=== PATIENT | female | born 1955 | race Caucasian/White ===

== ENCOUNTER 2017-04-27 21:39 | Inpatient (IN) | payer OTHER ==
[~2017-04-27] VITALS: Ht 160 cm; Wt 93.7 kg
[2017-04-27 21:43] VITALS: BP 184/112; PULSE 146; RESP 12; O2SAT 98
--- NOTE | 2017-04-27 21:52 | ED.REPORT ---
HPI-Chest Pain 40 and Over Date of Service Apr 27, 2017 ED Provider: Jamil Anne MD The pt is a 61 y/o female w/ a hx of idiopathic PVCs presenting to the ED due to a possible episode of A-fib beginning 1 hour ago while at rest. The pt has never had this happen before and has not had alcohol today. Denies nausea, vomiting, diarrhea, cough, cold, flu, or dysuria. The pt reports having idiopathic PVCs for the last 30 years. Her mother had an episode of A-fib at age 60. Nursing Notes Stated Complaint: POSS AFIB Chief Complaint: Possible A-fib Nursing Notes Reviewed: Yes Allergies: Coded Allergies: Sulfa (Sulfonamide Antibiotics) (Verified Allergy, Intermediate, 04/27/17) Scheduled Acebutolol (Acebutolol) 200 Mg Capsule 200 MG PO DAILY Aspirin Chew (Aspirin Chew) 81 Mg Chew 81 MG PO DAILY Fluoxetine (Fluoxetine) 20 Mg Capsule 20 MG PO DAILY Lansoprazole DR (Prevacid) 30 Mg Capsule 30 MG PO DAILY Sucralfate (Carafate) 1 Gm Tablet 1 GM PO QID Miscellaneous Medications Estradiol (Estrogel) 50 Gm Gel..supervisor cytology 50 GM TD Fluticasone Propionate (Flonase Allergy Relief) 50 Mcg/Actuation Effie.susp 9.9 ML NS Magnesium Oxide (Magnesium) 250 Mg Tablet 250 MG PO Vit D3/Folic Acid/B2/B6/B12 (Folgard Tablet) 1 Each Tablet 1 EACH PO General Time Seen by MD: 21:51 Chief Complaint Other (Possible A-fib ) Hx Obtained From: Patient Arrived By: Walk-in Sudden in Onset?: Yes Onset Occurred: Just prior to arrival Symptom Duration: Since onset Recent Healthcare: No recent doctor visit, No recent hospitalization Similar Sx Previous: No Past Medical History Past Medical History Idiopathic PVCs for last 30 years; Past Surgical History None reported Smoking History Never Smoker Social History Other Social History: Good social support Ambulatory Status Independent Review of Systems Pt reports a rapid heart rate; Basic Review of Systems Eyes: Vision NL ENT: Hearing NL, No pain : No dysuria Hematologic: No bleeding Endocrine: No cold intolerance, No heat intolerance Allergy / Immune: No allergy Respiratory: Denies: Non-productive cough GI: Denies: Diarrhea, Nausea, Vomiting Complete sys rev & neg: except as marked. Female: Denies: Dysuria Physical Exam Initial Vital Signs Vital Signs (First) Date Time Temp Pulse Resp B/P Pulse Ox O2 Delivery O2 Flow Rate FiO2 04/27/17 21:43 36.9 146 12 184/112 98 Room Air Initial VS: Reviewed Head / Eyes: Atraumatic, Normocephalic, PERRL ENT: Mucous membranes moist, Conjunctiva normal, No scleral icterus Extremities: Vascular intact, Neuro intact, No swelling, No tenderness Skin: Warm, Dry, No cyanosis Neurologic: Alert, Oriented, Nonfocal Psychiatric: Mood/affect normal, Behavior normal, Normal thought content General/Constitutional: Awake, Alert, No acute distress Respiratory / Chest: Atraumatic, Breath sounds NL, Breath sounds = bilat Cardiovascular: Heart sounds NL Heart Rate / Rhythm: Positive: Tachycardia Irregular regular rhythm; No edema; Abdomen: Atraumatic, Soft, Non-tender Neck: Atraumatic, Supple, Full range of motion, No JVD Interpretation & Diagnostics Lab Results Interpretation Result Diagram: 04/27/17 2215 04/27/17 2215 Test 04/27/17 21:55 04/27/17 22:15 Hold Urine Received (Received) White Blood Count 11.8th/mm3 (3.8-10.1) Red Blood Count 4.95mil/mm3 (3.90-5.20) Hemoglobin 14.4g/dL (12.0-15.6) Hematocrit 42.7% (35.0-46.0) Mean Corpuscular Volume 86.3fL (81-100) Mean Corpuscular Hemoglobin 29.1pg (27.0-35.0) Mean Corpuscular Hemoglobin Concent 33.7% (32.0-37.0) Red Cell Distribution Width 13.3% (12.3-15.4) Platelet Count 288bil/L (150-400) Neutrophils (%) (Auto) 65.7% (40-74) Lymphocytes (%) (Auto) 24.3% (14-46) Monocytes (%) (Auto) 5.8% (4-12) Eosinophils (%) (Auto) 3.3% (0-5) Basophils (%) (Auto) 0.6% (0-3) Sodium Level 140mEq/L (134-144) Potassium Level 3.5mEq/L (3.5-5.2) Chloride Level 101mEq/L (97-108) Carbon Dioxide Level 26mmol/L (18-29) Blood Urea Nitrogen 18mg/dL (8-27) Creatinine 0.76mg/dL (0.57-1.00) Estimat Glomerular Filtration Rate 111mL/min (>59) Glucose Level 108mg/dL (60-99) Calcium Level 9.5mg/dL (8.5-10.1) Magnesium Level 1.9mg/dL (1.6-2.6) Total Bilirubin 0.2mg/dL (0.0-1.2) Aspartate Amino Transf (AST/SGOT) 23U/L (0-50) Alanine Aminotransferase (ALT/SGPT) 17U/L (0-32) Alkaline Phosphatase 76U/L (25-165) Troponin T 0.010ug/L (0.0-0.011) Total Protein 7.5g/dL (6.4-8.4) Albumin 4.2g/dL (3.4-5.0) Thyroid Stimulating Hormone (TSH) 3.750uIU/mL (0.450-4.500) Pulse Oximetry Interpretation Pulse Oximetry Interpretation: 98% ECG Interpretation ECG Interpretation: Rate 150 A-fib w/ RVR Incomplete RBBB Time: 21:57 Interpreted by: ED physician X-Ray Chest Interpretation Chest Xray Interpretation: Impression: No acute findings View: Portable, 1 view Interpretation / Wet Read by: Wet read ED physician Re-Eval/Medical Decision Med Decision/Clinical Course Healthy 61-year-old female presents with new onset A. fib and rapid ventricular response. Laboratory work reassuring. Chest x-ray normal. Boluses of IV Cardizem brought her heart rate down to about 110. She maintains on a Cardizem drip. We will admit to the progressive care unit for ongoing treatment of her RVR. I did not feel that cardioversion was indicated. She does have a history of recurrent palpitations related to PVCs. Any one of these could be cryptic A. fib. I recommended echocardiogram prior to any attempts at cardioversion. Source of Hx: Family Consultation : Referral / Consult Name: Damian Fischer MD Consulted With: Hospitalist Call Returned at: 23:40 Reel Hooker: Will see patient, Agrees with eval, Agrees with plan, Accepts admit Counseled Regarding: Diagnosis, Lab results, Need for admission Discharge & Departure Primary Impression: Atrial fibrillation with rapid ventricular response Disposition: ADMITTED TO HOSPITAL Discharge Condition All VS Reviewed: Yes Condition: Stable Referrals: Natalya Antoine PA-C (PCP) Crit Care Except Billable Proc Time Spent: 30-74 minutes Services Performed: Patient management by me, Time spent at bedside, Reviewing test results, Reviewing imaging, Discussing patient care, Documentation in record, Time with fam/surrogate, Other (managing the atrial fibrillation with aliquots of IV Cardizem and a Cardizem drip.) Scribe Attestation Portions of this note were transcribed by Joel Espinosa. I, Dr. Anne personally performed the history, physical exam and medical decision-making; I reviewed and confirmed the accuracy of the information in the transcribed note. copies to: Natalya Antoine PA-C, Todd P DO Apr 27, 2017 21:52 Joel Espinosa Apr 27, 2017 22:27
[2017-04-27] MEDS ORDERED: Diltiazem 5 mg/mL 5 mL Inj IVPUSH ONE (22:10)
[2017-04-27] MEDS ORDERED: Diltiazem HCl 125 MG in 0.9% Sodium Chloride 100 ML, Pharmacy To Mix 1 EA IV SCH (22:10)
[2017-04-27 22:17] LABS: BASOPHILS % (AUTO) 0.6 % (0-3); EOSINOPHILS % (AUTO) 3.3 % (0-5); MONOCYTES % (AUTO) 5.8 % (4-12); Mean Corpuscular Hemoglobin 29.1 pg (27.0-35.0); Mean Corpuscular Volume 86.3 fL (81-100); NEUTROPHILS % (AUTO) 65.7 % (40-74); Platelet Count 288 bil/L (150-400)
[2017-04-27 22:30] VITALS: BP 155/89; PULSE 136; RESP 12; O2SAT 96
[2017-04-27 22:46] LABS: TROPONIN T 0.01 ug/L (0.0-0.011)
[2017-04-27 22:50] VITALS: BP 135/82; PULSE 151; RESP 16; O2SAT 96
[2017-04-27 23:03] LABS: Magnesium 1.9 mg/dL (1.6-2.6)
[2017-04-27 23:20] VITALS: BP 136/67; PULSE 145; RESP 19; O2SAT 96
[2017-04-27] MEDS ORDERED: Ondansetron 2 mg/mL 2 mL Inj IVPUSH PRN (23:35)
[2017-04-27] MEDS ORDERED: Alum-Mag Hydrox-Simeth 30 mL Suspension PO PRN (23:35)
[2017-04-27] MEDS ORDERED: Polyethylene Glycol (PEG) 17 Gm Powder PO PRN (23:35)
--- NOTE | 2017-04-27 23:41 | PCM.HPMED ---
Subjective Date of Service Apr 27, 2017 Primary Provider: Admitting Physician: Primary Care Physician: Natalya Antoine PA-C Attending Physician: Admit Status: From the Emergency Department, Full Admit, [facility] Telemetry Chief Complaint: Palpitations History of Present Illness: Kristan Payne is a 61 y/ female with Hypertension, Hyperlipidemia, GERD, allergic rhinitis presenting to [facility] emergency department due to palpitations Patient reported she was sitting at home when she had acute onset of palpitations. Associated symptoms includes feeling anxious and she denies any dyspnea or chest pain. She denies any fever, chills or coughing. Denies nausea, vomiting, diarrhea, cough, cold, flu, or dysuria. 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 Her mother had an episode of A-fib at age 60 and was on Coumadin Case discussed with Dr Anne, Cardizem drip initiated after a bolus was not effective. EKG confirmed Atrial fibrillation Review of Systems: Pertinent positives as noted in HPI. All other systems were reviewed and are negative Allergies Coded Allergies: Sulfa (Sulfonamide Antibiotics) (Verified Allergy, Intermediate, 04/27/17) Home Medications From [facility], not yet confirmed Kristan Payne [id number] 1955 03/29/2017 10:40 AM 08/11 acebutolol 200 mg capsule take 1 capsule by oral route every day aspirin 81 mg tablet,delayed release take 1 tablet by oral route every day Carafate 1 gram tablet take 1 tablet by oral route 2 times every day on an empty stomach 1 hour before meals and at bedtime Compound - Topical COMBO. PKG biest/prog/test/dhea 1/50/1/10mg/ml Flonase Allergy Relief 50 mcg/actuation nasal spray,suspension 2 sprays each side of nose once daily fluoxetine 20 mg capsule take 1 capsule by oral route every day in the morning magnesium take 1 tab by oral route every day Prevacid 15 mg capsule,delayed release take 1 tab daily Vitamin D3 5,000 unit tablet take 1 by Oral route once PMH History of - hormone replacement (HRT) Obesity Smoking Hypertension Hyperlipidemia GERD Allergic rhinitis Depression Vitamin D deficiency . Surgical History Septum repair and rhinoplasty JANES D&C Family History Father had GI bleeding and from pneumonia age 67 Mother had Thrombocytopenia, thyroid cancer and Atrial fibrillation Sister had Breast Cancer Social History Occupation: retired nurse Hx Alcohol Use: No Hx Substance Use: No Hx Tobacco Use: Yes Smoking Status: Former Smoker Living Arrangement: with Family Exam Vital Signs Vital Sign - Last Date Time Temp Pulse Resp B/P Pulse Ox O2 Delivery O2 Flow Rate FiO2 04/27/17 21:43 36.9 146 12 184/112 98 Room Air Exam General: Alert, Oriented X3, Cooperative, No acute Distress Eyes: PERRLA, Scleral Anicteric Mouth: Mouth Normal, Mucous Membranes Moist/[place] Neck: Supple, no Thyromegaly, trachea central. Chest & Lungs: Clear to auscultation & percussion, No adventitious breath sounds, no crackles, no wheeze Cardiovascular: Normal S1, Normal S2, No Murmurs/Rubs/Gallops, Irregularly irregular (No JVD, no peripheral edema) Pulses: Radial (present and equal), Dorsalis Pedi (present and equal) Abdomen: Soft, Non-tender, Non-distended, Normoactive bowel tones. Musculoskeletal: Unremarkable. Normal range of motion, no swollen or erythematous joints Extremities: No edema, no cyanosis, no clubbing. Skin: No rashes. Warm and dry, no erythematous areas Neurological: Grossly neurologically intact, Normal Speech, Sensation Intact Lymphatic: Lymph nodes Cervical and Axillary not palpable. Lab and Diagnostics Labs Laboratory Tests Test 04/27/17 21:55 04/27/17 22:15 Hold Urine Received (Received) White Blood Count 11.8th/mm3 (3.8-10.1) Red Blood Count 4.95mil/mm3 (3.90-5.20) Hemoglobin 14.4g/dL (12.0-15.6) Hematocrit 42.7% (35.0-46.0) Mean Corpuscular Volume 86.3fL (81-100) Mean Corpuscular Hemoglobin 29.1pg (27.0-35.0) Mean Corpuscular Hemoglobin Concent 33.7% (32.0-37.0) Red Cell Distribution Width 13.3% (12.3-15.4) Platelet Count 288bil/L (150-400) Neutrophils (%) (Auto) 65.7% (40-74) Lymphocytes (%) (Auto) 24.3% (14-46) Monocytes (%) (Auto) 5.8% (4-12) Eosinophils (%) (Auto) 3.3% (0-5) Basophils (%) (Auto) 0.6% (0-3) Sodium Level 140mEq/L (134-144) Potassium Level 3.5mEq/L (3.5-5.2) Chloride Level 101mEq/L (97-108) Carbon Dioxide Level 26mmol/L (18-29) Blood Urea Nitrogen 18mg/dL (8-27) Creatinine 0.76mg/dL (0.57-1.00) Estimat Glomerular Filtration Rate 111mL/min (>59) Glucose Level 108mg/dL (60-99) Calcium Level 9.5mg/dL (8.5-10.1) Magnesium Level 1.9mg/dL (1.6-2.6) Total Bilirubin 0.2mg/dL (0.0-1.2) Aspartate Amino Transf (AST/SGOT) 23U/L (0-50) Alanine Aminotransferase (ALT/SGPT) 17U/L (0-32) Alkaline Phosphatase 76U/L (25-165) Troponin T 0.010ug/L (0.0-0.011) Total Protein 7.5g/dL (6.4-8.4) Albumin 4.2g/dL (3.4-5.0) Thyroid Stimulating Hormone (TSH) 3.750uIU/mL (0.450-4.500) Result Diagram: 04/27/17221404/27/172214 Assessment & Plan Kristan Payne is a 61 y/ female with Hypertension, Hyperlipidemia, GERD, allergic rhinitis presenting to [facility] emergency department due to palpitations 1. New onset Atrial Fibrillation with rapid ventricular response. Present on admission Likely etiology is longstanding Hypertension. TSH normal ruling out thyrotoxicosis as a cause. Ischemic heart disease will need to be ruled out. No evidence of any Pulmonary disease. CHADS2 score is 1 - monitor on telemetry - trending troponin overnight - continue rate control with Cardizem drip, titrate to Cardizem PO - complete echo requested - continue Aspirin - anticoagulation with Heparin drip, discussed transitioning to Coumadin with the patient 2 Hypertension, chronic Presumed stable with patient on one antihypertensive medication - holding Acebutolol for now to avoid bradycardia and this is an old medication with no clear benefit 3 Depression - continue Fluoxetine 4 GERD - continue Carafate and Prevacid (or equivalent) - Acetaminophen as needed for mild pain/fever/headache - Bowel regimen as needed - Antiemetic as needed Patient admitted under inpatient status with expected length of stay > 2 midnights for severity of present symptoms, complexities of treatment plan and risk for adverse event . Resuscitation Status: CPR: Attempt Resuscitation Damian Fischer MD Apr 27, 2017 23:40
[2017-04-28] VITALS (12 sets, daily range): BP systolic 99–155; BP diastolic 52–84; PULSE 58–159; RESP 16–20; O2SAT 95–98
[2017-04-28] MEDS ORDERED: Diltiazem 5 mg/mL 5 mL Inj IVPUSH ONE (00:15)
--- NOTE | 2017-04-28 00:47 | NUR ---
admit note: pt. admitted for irregular heartbeat since 2100 sat night (04-27), pt. states she has hx of pvc's but not afib. pt's heart rate was 150-160, has been on diltiazem drip rate 15, pt's current rate is afib 120's. pt. currently denies chest pain or sob.
[2017-04-28] MEDS ORDERED: Heparin Protocol Boluses IVPUSH PRN (01:20)
[2017-04-28] MEDS ORDERED: VIT1TABL95 PO (01:43)
[2017-04-28] MEDS ORDERED: LANS30CA15 PO (01:43)
[2017-04-28] MEDS ORDERED: FLUT9.9S NS (01:43)
[2017-04-28] MEDS ORDERED: SUCR1TAB30 PO (01:43)
[2017-04-28] MEDS ORDERED: ACEB200C PO (01:43)
[2017-04-28] MEDS ORDERED: MAGN250T29 PO (01:43)
[2017-04-28] MEDS ORDERED: ASPI81TA3 PO (01:43)
[2017-04-28] MEDS ORDERED: FLUO20CA25 PO (01:43)
[2017-04-28] MEDS ORDERED: ESTR50GE TD (01:43)
[2017-04-28] MEDS: Heparin 25K Unit/500mL 0.45 NS 25,000 UNIT in IV Premix 1 EACH IV SCH ×2 (02:03→20:44)
--- NOTE | 2017-04-28 02:41 | NUR ---
tele: pt. converted to sinus rhythm approx 0235am, heart rate 70's, pt. felt her heart rate convert. cardizem drip turned from 15 down to 10, pt. on heparin drip at 1000 units, will cont. to assess. Addendum: 04/28/17 at 0405 by FLETCHER DANG RN pt. still sinus rhythm, 4am cardizem drip turned down to rate of 5
--- NOTE | 2017-04-28 10:13 | DRSVH ---
PROCEDURE: X-RAY CHEST ONE VIEW, PORTABLE ([id number]) INDICATIONS: palpitations TECHNIQUE: One view of the chest was acquired. COMPARISON: None. FINDINGS: Surgical changes and devices: None. Lungs and pleura: No pleural effusions or pneumothorax. Lungs are clear. Mediastinum: Mediastinal contours appear normal. Heart size is normal. Bones and chest wall: No suspicious bony lesions. Overlying soft tissues appear unremarkable. IMPRESSION: No acute pulmonary process. Dictated by: Criss Day M.D. on 04/28/2017 at 10:11 Approved by: Criss Day M.D. on 04/28/2017 at 10:11
[2017-04-28] MEDS ORDERED: Diltiazem CD 180 mg ER24 Capsule PO SCH (10:30)
--- NOTE | 2017-04-28 16:45 | NUR ---
Social Work- Initial Assessment/Readiness for Discharge Data: See CM Initial Assessment. Pt is a 61 year old female admitted [place] for new onset afib with rvr per H&P. Pt is listed as self-pay insurance but pt reports that she has [employer]. [employer] does list [employer] as an insurance. Pt's PCP is Natalya Antoine PA-C. Pt's readmit risk score is not entered at this time. SW met with pt at bedside to discuss d/c planning, SW role explained. Pt alert and oriented x3. Pt resides in [place] with her where she is independent at baseline with ADLs and self-care. Pt uses no DME and drives. Pt has no HH or SNF history. Pt has no LTC insurance or VA benefits. Pt thinks that she has completed DPOA, SW requested this information. Pt has questions about her insurance, t/c to registration to alert them if missing insurance information. Registration to remedy this. Pt is likely to d/c home with her spouse to transport via POV. No discharge needs identified. SW will continue to follow. Assessment: pt who is independent with ADLs and self-care Plan: Pt is likely to d/c home with her spouse to transport via POV. No discharge needs identified. SW will continue to follow. LAZARA Babb Addendum: 04/28/17 at 1652 by VIKKI LOVELL SS Amended: Links added.
--- NOTE | 2017-04-28 17:36 | NUR ---
Diltiazem Drip 0940 - Discussed her care with Dr. Liu, Dr. Skaggs, and the rest of the multidisciplinary care team during morning rounds. Asked if she would be switching over to by mouth Diltiazem. Dr. Liu said that would be up to Cardiology. Also, informed them that her home medications had not been ordered. Dr. Liu said it would be up to Cardiology to decide which medications to continue or not. 1108 - Per Dr. Liu verbal orders, her Diltiazem drip was stopped and 180 mg of by mouth Diltiazem was given at this time. Care continues.
--- NOTE | 2017-04-28 18:42 | PCM.PNMED ---
Subjective Date of Service Apr 28, 2017 Subjective Overnight: Converted to sinus rhythm at ultimately 0235. Cardizem drip was turned down from 15-10. Remains on heparin drip Today: Patient seen and examined. No specific complaints. Denies chest pain, shortness of breath, visual disturbances, headache. Exam Vital Signs Vital Sign - Last Date Time Temp Pulse Resp B/P Pulse Ox O2 Delivery O2 Flow Rate FiO2 04/28/17 15:59 36.8 66 18 138/84 97 Room Air Intake and Output 04/27/17 04/27/17 04/28/17 Cumulative From/Thru 14:59 22:59 06:59 04/27/17 21:43 - 04/28/17 05:17 Intake Total 100 ml 100 ml Output Total 475 ml 475 ml Balance -375 ml -375 ml Intake Oral 100 ml 100 ml Output Urine Total 475 ml 475 ml Exam General: Alert sitting up in hospital bed in no acute distress, well-developed, well-nourished, appropriately interactive. HEENT: Normocephalic, atraumatic. Neck: Supple with full range of motion. No jugular venous distension. Cardiovascular: Regular rate and rhythm with no murmurs, rubs, or gallops appreciated Pulmonary: Clear to auscultation bilaterally with no crackles, wheezes, or rhonchi. Normal respiratory effort with no use of accessory muscles. Abdomen: Soft, nontender, nondistended. Extremities: No clubbing, cyanosis, edema Skin: Normal temperature, turgor, and texture Neurological: Cranial nerves grossly intact. Psychiatric: Normal mood and affect. Alert and oriented to person, place, and time. IVs and Medications Medications Reviewed: Medications were reviewed in detail Lab and Diagnostics Result Diagram: 04/27/17221404/27/172214 X-Rays, CTs and MRIs . X-RAY CHEST ONE VIEW, PORTABLE IMPRESSION: No acute pulmonary process. Dictated by: Criss Day M.D. on 04/28/2017 Assessment & Plan Kristan Payne is a 61 y/o female with Hypertension, Hyperlipidemia, GERD, allergic rhinitis admitted for new onset atrial fibrillation with RVR New onset Atrial Fibrillation with rapid ventricular response. Present on admission. Ongoing Likely etiology is longstanding Hypertension. TSH normal ruling out thyrotoxicosis as a cause. Ischemic heart disease will need to be ruled out. No evidence of any Pulmonary disease. CHADS2 score is 1 - Continue to monitor on telemetry, patient has been in sinus rhythm throughout the day rate in the 80s - Troponin negative 3 - Cardizem drip titrated off with successful transition to oral 180 mg daily - Complete echo ordered and pending - Continue Aspirin - Continue heparin drip, transitioned to Coumadin tomorrow if anticoagulation is needed - Patient should follow up with her carpet weaver (Dr. Bond) upon discharge Hypertension, chronic. Presumed stable with patient on one antihypertensive medication - Continue to hold Acebutolol - Patient currently controlled with diltiazem - May consider starting a beta radha Depression. Chronic - continue Fluoxetine GERD. Chronic - continue Carafate and Prevacid (or equivalent) - Acetaminophen as needed for mild pain/fever/headache - Bowel regimen as needed - Antiemetic as needed Disposition: Patient will possibly discharge tomorrow pending hemodynamic state and rhythm/rate control. GI Prophylaxis: H2 radha VTE Prophylaxis: Other (heparin drip) Resuscitation Status: CPR: Attempt Resuscitation Attending Statement The patient was seen and examined together with Dr. Skaggs on 04/28/17 and I have added additional information to the note above. TISHA SKAGGS DO Apr 28, 2017 18:42 Mariposa Liu DO Apr 29, 2017 12:12
[2017-04-28] MEDS ORDERED: Sucralfate 1,000 mg Tablet ONE (20:26)
[2017-04-28] MEDS: Sucralfate 1,000 mg Tablet PO SCH (20:35)
[2017-04-29 05:24] LABS: BASOPHILS % (AUTO) 0.5 % (0-3); EOSINOPHILS % (AUTO) 3.8 % (0-5); MONOCYTES % (AUTO) 6.4 % (4-12); Mean Corpuscular Hemoglobin 29.2 pg (27.0-35.0); Mean Corpuscular Volume 86.1 fL (81-100); NEUTROPHILS % (AUTO) 60.7 % (40-74); Platelet Count 233 bil/L (150-400)
[2017-04-29] MEDS: Sucralfate 1,000 mg Tablet PO SCH ×2 (05:39→12:01)
--- NOTE | 2017-04-29 05:48 | NUR ---
Cardiac Pt on heparin gtt @ 1050 units/hr, last PTT 53, increased rate to 1075 units/hr, PTT at midnight then was 70. No s/s of bleeding. Pt ambulated around the unit with good tolerance, remain NSR 70-80s, BP stable. Pt c/o 10/12 headache, given tylenol for pain, continue to monitor.
[2017-04-29] MEDS ORDERED: Pantoprazole 40 mg ER24 Tablet PO SCH (06:30)
[2017-04-29] MEDS ORDERED: Diltiazem CD 180 mg ER24 Capsule PO SCH (08:30)
[2017-04-29] MEDS ORDERED: LANSOPRAZOLE 30 MG PO SCH (08:30)
[2017-04-29] MEDS ORDERED: MeTOProlol XL 50 mg ER24 Tablet PO SCH (08:30)
[2017-04-29 09:24] VITALS: BP 121/90; PULSE 69; RESP 16; O2SAT 97
[2017-04-29 10:13] VITALS: PULSE 82
--- NOTE | 2017-04-29 11:40 | PCM.DIMED ---
Niki Moreno DO 04/29/17 1110: Discharge Instructions Date of Service Apr 29, 2017 Dates of Hospitalization Apr 27, 2017 at 23:57 Discharge Diagnosis Discharge Diagnosis New onset Atrial Fibrillation with rapid ventricular response Hypertension, chronic. Depression. Chronic Gastroesophageal Reflux Disease Diet Discharge Diet: Heart Healthy Activity Discharge Activity: No restrictions Call your provider Call your provider for: Fever or Chills, Shortness of breath, Bleeding, Chest pain, Vomitting, Excessive diarrhea, Weakness (unilateral) Patient Instructions Patient Instructions You presented to the emergency room because you felt palpitations while at rest. We did an EKG that showed atrial fibrillation with a heart rate of 150. You were given Cardizem otherwise known as diltiazem which helped lower your heart rate. Eventually, you converted back to normal sinus rhythm. We held your acebutolol while you were inpatient. We started you on metoprolol succinate today in hopes of having better control of your heart rate, especially with activity. We watched your heart rate after starting the new medication and it remained controlled. Please stop taking your acebutolol and take metoprolol daily instead. You will follow up with your costume mistress, Dr. Bond within 1- 2 weeks and she can reassess your medications at that time. Because your atrial fibrillation converted back to normal sinus rhythm, there are no indications of starting you on Coumadin or other anticoagulants. However , you should continue taking the Aspirin 81 mg that you have been taking daily. Lastly, the echocardiogram (ultrasound of your heart) completed today was essentially normal and unchanged from your previous echocardiogram. Follow-up plan Follow-up with Cardiology and your PCP in 1-2 weeks Follow-up Provider: Jane Bond MD Follow-up with PCP in: 1 week (1-2 weeks. If an appointment hasn't been made, please call to schedule an appointment ) Provider: Natalya Antoine PA-C Follow-up in: 2 weeks (If an appointment hasn't been made, please call to schedule an appointment ) Mariposa Liu DO 04/29/17 1545: Discharge Instructions Attending's Statement The patient was seen and examined together with Dr. Moreno on 04/29/17 and I have added additional information to the note above. Niki Moreno DO Apr 29, 2017 11:10 Mariposa Liu DO Apr 29, 2017 15:45
[2017-04-29] MEDS ORDERED: METO-369 PO (11:41)
[2017-04-29 12:19] VITALS: BP 131/87; PULSE 79; RESP 18; O2SAT 98
--- NOTE | 2017-04-29 12:22 | DRSVH ---
Formerly [facility] [address] [place] [address] Echocardiogram Report Name: OBDULIO COTO Date: 04/29/2017 Height: 63 in Hospital Exam Location: [facility] Weight: 207 lb Gender: Female BSA: 2.0 m2 : 1955 Age: 61 yrs BP: 155/ 82 mmHg Reason For Study: Atrial fibrillation Ordering Physician: HOSPITALIST [facility] Performed By: Sandra Perez Referring Physician: Katey Alonso Interpretation Summary 1. Normal left ventricular size, wall thickness and systolic function with an estimated EF of 55 to 60% 2. Normal right ventricular size and systolic function 3. No evidence for significant valvular pathology Compared to the previous study, no significant change Procedure: A two-dimensional transthoracic echocardiogram with color flow and Doppler was performed. The study quality was technically adequate. Comparison is made with the echocardiogram of 05/22/16. The patient was in normal sinus rhythm during the exam. Left Ventricle: The left ventricle is normal in size, wall thickness, and systolic function without any focal wall motion abnormalities. The left ventricular ejection fraction is normal. The ejection fraction is estimated to be 55-60%. There are no obvious focal wall motion abnormalities noted but poor endocardial definition reduces the sensitivity for the detection of such. Assessment of diastolic parameters indicates normal left ventricular diastolic function and normal filling pressures. Right Ventricle: The right ventricle is normal size. The right ventricular systolic function is normal. Atria: The left atrial size is normal. Right atrial size is normal. No color doppler evidence for an ASD. Mitral Valve: The mitral valve is normal. There is trace mitral regurgitation. Aortic Valve: The aortic valve opens well. The valve appears trileaflet. No aortic regurgitation is present. Tricuspid Valve: The tricuspid valve is normal. There is a trace or physiologic amount of tricuspid regurgitation. Pulmonary artery pressures cannot be estimated because of the lack of a measurable TR jet velocity. Pulmonic Valve: The pulmonic valve is not well visualized. There is a trace or physiologic amount of pulmonic regurgitation. Great Vessels: The aortic root is normal size. The ascending aorta is normal in size. The aortic arch is normal in size. The IVC is of normal diameter and collapses greater than 50% with a sniff. This suggests a low right atrial pressure of 3 mm Hg. Pericardium/ Pleura There is no pericardial effusion. There is no pleural effusion. MMode/2D Measurements & Calculations LVIDd: 5.1 cm LVIDs: 3.9 cm LA A2 area: 12.7 cm FS: 23.4 % LA A4 area: 14.5 cm EPSS: 0.46 cm LA length (vol): 5.0 cm IVSd: 0.84 cm LA vol: 31.1 ml LVPWd: 0.77 cm LA vol index: 15.9 ml/m IVC diam: 1.2 cm RA long axis: 3.9 cm LVOT diam: 2.1 cm RA area: 12.0 cm AoV Openin.7 cm RA vol: 31.3 ml Ao root diam: 2.7 cm RA : 16.0 ml/m2 asc Aorta Diam: 3.0 cm Ao Arch Diam (Prox Trans): 2.4 cm LV camarena. diameter/BSA (cm/m^2): 2.6 LV sys. diameter/BSA (cm/m^2): 2.0 RVD1 (basal): 3.3 cm RVD2 (mid): 2.6 cm Doppler Measurements & Calculations Ao V2 max: 129.3 cm/sec MV E max mihir: 83.3 cm/sec Ao max P.7 mmHg MV A max mihir: 89.8 cm/sec Ao mean P.2 mmHg MV P1/2t: 59.0 msec LVOT Max Mihir: 112.1 cm/sec KORY(I,D): 3.4 cm sev ratio: 0.95 MV E/A: 0.93 PA V2 max: 72.0 cm/sec Med Peak E' Mihir: 10.2 cm/sec PA mean P.1 mmHg E/E' med: 8.2 Lat Peak E' Mihir: 13.3 cm/sec E/E' lat: 6.3 E/e' average: 7.2 MV dec time: 0.20 sec MV P1/2t max mihir: 83.7 cm/sec MVA(P1/2t): 3.7 cm2 Ao V2 mean: 85.5 cm/sec LV V1 max P.0 mmHg Ao V2 VTI: 22.2 cm LV V1 VTI: 21.1 cm KORY(V,D): 3.1 cm2 PA V2 mean: 48.3 cm/sec KORY indexed to BSA (cm^2/m^2): 1.8 PA pr(Accel): 51.0 mmHg Reading Physician:12:22 PM
--- NOTE | 2017-04-29 13:33 | NUR ---
Discharge Pt and RN went over discharge information, new script, and future treatment. Pt has an appointment made and understands this. Tele leads were removed. IVs were removed. Pt demonstrated understanding of teaching. Pt left with all personal belongings, escorted down to vehicle by a staff member.
--- NOTE | 2017-04-29 14:33 | NUR ---
Social Work: Discharge/Multidisciplinary Rounds D: Pt discussed in multidisciplinary rounds; the patient is medically stable for discharge home. Capacity for self-care reviewed; no concerns or barriers to discharge identified. Patient ambulating I and participating in self-care during admission. MANAGER BALANCE met with patient prior to discharge to confirm discharge plan and assess for unmet needs. patient agrees with plan to d/c home and has no concerns. Her spouse is transporting. Bedside RN to review discharge ppw and teaching. A: Pt who is I at baseline. P: Pt to discharge home via POV and no sw needs. LAZARA Liu
--- NOTE | 2017-04-29 18:20 | PCM.DC.MED ---
Discharge Summary Date of Service Apr 29, 2017 Dates of Hospitalization Date of Hospital Admission Apr 27, 2017 at 23:57 Date of Discharge: Apr 29, 2017 Providers: Admitting Physician: Damian Fischer MD Primary Care Physician: Natalya Antoine PA-C Attending Physician: Damian Fischer MD Diagnosis at Time of Discharge Diagnosis at Time of Discharge New onset Atrial Fibrillation with rapid ventricular response Hypertension, chronic. Depression. Chronic Gastroesophageal Reflux Disease Procedures XRay, CTs & MRIs . X-RAY CHEST ONE VIEW, PORTABLE IMPRESSION: No acute pulmonary process. Dictated by: Criss Day M.D. on 04/28/2017 Cardiac Echo Impression ECHO on 04/29/17 Interpretation Summary 1. Normal left ventricular size, wall thickness and systolic function with an estimated EF of 55 to 60% 2. Normal right ventricular size and systolic function 3. No evidence for significant valvular pathology Compared to the previous study, no significant change Brief History Kristan Payne is a 61 y/o female with Hypertension, Hyperlipidemia, GERD, allergic rhinitis presenting to [facility] emergency department due to palpitations Patient reported she was sitting at home when she had acute onset of palpitations. Associated symptoms includes feeling anxious and she denies any dyspnea or chest pain. She denies any fever, chills or coughing. Denies nausea, vomiting, diarrhea, cough, cold, flu, or dysuria. 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 Her mother had an episode of A-fib at age 60 and was on Coumadin. EKG in the ED confirmed Atrial fibrillation with RVR rate at 150 and incomplete RBBB. Patient was started on cardizem bolus and then cardizem drip. She converted to sinus rhythm at approximately 0235am on 04/28/17 with heart rate 70' s. Per tele, patient's heart rate overnight was in the 60s-80s with activity spikes in the lower 100s. On 04/29/17, we stopped the cardizem drip and gave patient a dose of 180mg cardizem PO. Patient remained sinus rhythm, but was running tachycardic up to the 140's with movement. Paitent was started on Toprol XL 50 mg. Patient was observed and heart rate remained controlled. ECHO was unremarkable and she was discharged to home in stable condition with follow up with her PCP and associate sales Dr. Bond. Hospital Course Kristan Payne is a 61 y/o female with Hypertension, Hyperlipidemia, GERD, allergic rhinitis admitted for new onset atrial fibrillation with RVR New onset Atrial Fibrillation with rapid ventricular response. Present on admission. Ongoing Likely etiology is longstanding Hypertension. TSH normal ruling out thyrotoxicosis as a cause. Ischemic heart disease will need to be ruled out. No evidence of any Pulmonary disease. CHADS2 score is 1 - Continue to monitor on telemetry, patient has been in sinus rhythm throughout the day rate in the 80s - Troponin negative 3 - Cardizem drip titrated off and patient was started on Toprol XL 50 mg . - Complete echo was unremarkable and unchanged from previous echo - Continued Aspirin - No indication for continued anticoagulation as patient converted to NSR - Patient should follow up with her associate sales (Dr. Bond) upon discharge Hypertension, chronic. Presumed stable with patient on one antihypertensive medication - Continued to hold Acebutolol. Instructed patient to stop taking acebutolol and take metoprolol instead -Patient received diltiazem drip while inpatient Depression. Chronic - continue Fluoxetine GERD. Chronic - continued Carafate and Prevacid (or equivalent) Exam Vital Signs (Last) Date Time Temp Pulse Resp B/P Pulse Ox O2 Delivery O2 Flow Rate FiO2 04/29/17 12:19 36.7 79 18 131/87 98 Room Air Exam General: Patient is lying comfortably on bed, AAOX3, not in acute distress, cooperative and pleasant. HEENT: head normocephalic and atraumatic, PERRLA, EOMI, no scleral icterus, noninjected conjunctiva Neck: neck supple, non-tender, no lymphadenopathy, trachea midline, no JVD CV: regular rate and rhythm, s1 and s2 heard, radial pulses 2+ and equal bilaterally, no rubs, murmurs or gallops, no edema Lungs: Clear to auscultation bilaterally, no wheezes, rales or rhonchi, no increased work of breathing Abdomen: normoactive bowel sounds on 4Q, soft, non-distended, non-tender to palpation, no organomegally, Skin: warm and dry Musculoskeletal: 5/5 UE and LE strength bilaterally, full ROM bilaterally Neuro: Grossly neurologically intact, cranial nerves II through XII intact, no dyskinesia, dysmetria, or dysdiadochokinesia noted, sensation intact in extremities Psych: Normal mood and affect Test 04/27/17 21:55 04/27/17 22:15 04/28/17 13:15 04/29/17 05:00 Hold Urine Received (Received) Magnesium Level 1.9mg/dL (1.6-2.6) Thyroid Stimulating Hormone (TSH) 3.750uIU/mL (0.450-4.500) Troponin T < 0.010ug/L (0.0-0.011) White Blood Count 7.6th/mm3 (3.8-10.1) Red Blood Count 4.83mil/mm3 (3.90-5.20) Hemoglobin 14.1g/dL (12.0-15.6) Hematocrit 41.6% (35.0-46.0) Mean Corpuscular Volume 86.1fL (81-100) Mean Corpuscular Hemoglobin 29.2pg (27.0-35.0) Mean Corpuscular Hemoglobin Concent 33.9% (32.0-37.0) Red Cell Distribution Width 13.3% (12.3-15.4) Platelet Count 233bil/L (150-400) Neutrophils (%) (Auto) 60.7% (40-74) Lymphocytes (%) (Auto) 28.3% (14-46) Monocytes (%) (Auto) 6.4% (4-12) Eosinophils (%) (Auto) 3.8% (0-5) Basophils (%) (Auto) 0.5% (0-3) Sodium Level 140mEq/L (134-144) Potassium Level 4.3mEq/L (3.5-5.2) Chloride Level 102mEq/L (97-108) Carbon Dioxide Level 27mmol/L (18-29) Blood Urea Nitrogen 16mg/dL (8-27) Creatinine 0.69mg/dL (0.57-1.00) Estimat Glomerular Filtration Rate 124mL/min (>59) Glucose Level 96mg/dL (60-99) Calcium Level 9.5mg/dL (8.5-10.1) Total Bilirubin 0.4mg/dL (0.0-1.2) Aspartate Amino Transf (AST/SGOT) 18U/L (0-50) Alanine Aminotransferase (ALT/SGPT) 13U/L (0-32) Alkaline Phosphatase 55U/L (25-165) Total Protein 6.5g/dL (6.4-8.4) Albumin 4.0g/dL (3.4-5.0) Test 04/29/17 07:18 Activated Partial Thromboplast Time 75.8sec (22.8-33.0) Discharge Medications Discharge Medications Aspirin Chew (Aspirin Chew) 81 Mg Chew 81 MG PO DAILY (Reported) Fluoxetine (Fluoxetine) 20 Mg Capsule 20 MG PO DAILY (Reported) Lansoprazole DR (Prevacid) 30 Mg Capsule 30 MG PO DAILY (Reported) Metoprolol Succinate ER (Metoprolol Succinate ER) 50 Mg Tab.er.24h 50 MG PO DAILY Prescribed by: Chris AVALOS Sucralfate (Carafate) 1 Gm Tablet 1 GM PO QID (Reported) Miscellaneous Medications Estradiol (Estrogel) 50 Gm Gel..director of medical review 50 GM TD (Reported) Fluticasone Propionate (Flonase Allergy Relief) 50 Mcg/[employer].susp 9.9 ML NS (Reported) Magnesium Oxide (Magnesium) 250 Mg Tablet 250 MG PO (Reported) Vit D3/Folic Acid/B2/B6/B12 (Folgard Tablet) 1 Each Tablet 1 EACH PO (Reported) Followup Plan Disposition: Patient is discharged to home in stable condition Follow-up plan Follow-up with Cardiology and your PCP in 1-2 weeks Discharge Diet: Heart Healthy Discharge Activity: No restrictions Patient Instructions You presented to the emergency room because you felt palpitations while at rest. We did an EKG that showed atrial fibrillation with a heart rate of 150. You were given Cardizem otherwise known as diltiazem which helped lower your heart rate. Eventually, you converted back to normal sinus rhythm. We held your acebutolol while you were inpatient. We started you on metoprolol succinate today in hopes of having better control of your heart rate, especially with activity. We watched your heart rate after starting the new medication and it remained controlled. Please stop taking your acebutolol and take metoprolol daily instead. You will follow up with your associate sales, Dr. Bond within 1- 2 weeks and she can reassess your medications at that time. Because your atrial fibrillation converted back to normal sinus rhythm, there are no indications of starting you on Coumadin or other anticoagulants. However , you should continue taking the Aspirin 81 mg that you have been taking daily. Lastly, the echocardiogram (ultrasound of your heart) completed today was essentially normal and unchanged from your previous echocardiogram. Follow-up Provider: Jane Bond MD Follow-up with PCP in: 1 week (1-2 weeks. If an appointment hasn't been made, please call to schedule an appointment ) Provider: Natalya Antoine PA-C Follow-up in: 2 weeks (If an appointment hasn't been made, please call to schedule an appointment ) Time spent Greater than 35 minutes Attending Statement The patient was seen and examined together with Dr. Moreno on 04/29/17 and I have added additional information to the note above. copies to: Jane Bond MD; Natalya Antoine PA-C, Alexa N DO Apr 29, 2017 18:20 Mariposa Liu DO Apr 29, 2017 18:30
== END 2017-04-29 14:08 | disposition home or self-care (01) | DRG 310 ==
LOC: SED 21:39 → PCC 23:57
PROVIDERS: ADMIT Hospitalist; ATTEND Hospitalist
PROC: 3E033RZ Introduction of Antiarrhythmic into Peripheral Vein, Percutaneous Approach (ICD-10-PCS; principal; 2017-04-27)
DX: I48.91 Unspecified atrial fibrillation (principal); I10 Essential (primary) hypertension; E78.5 Hyperlipidemia, unspecified; K21.9 Gastro-esophageal reflux disease without esophagitis; J30.9 Allergic rhinitis, unspecified; E55.9 Vitamin D deficiency, unspecified; I45.10 Unspecified right bundle-branch block; F32.9 Major depressive disorder, single episode, unspecified; Z79.82 Long term (current) use of aspirin; Z82.49 Family history of ischemic heart disease and other diseases of the circulatory system